=== PATIENT | female | born 1955 | race Hispanic/Latino ===

== ENCOUNTER → 2024-04-13 | Outpatient (CLI) | payer OTHER ==
[~2024-04-13] MED LIST: AMLO-257 PO; ANAS1TAB7 PO; ASPI-1197 PO; BENA10TA77 PO; CALC-1125 PO; CHOL200013 PO; DENO60DI SQ; METO-391 PO; PRAV40TA3 PO; UBID100C10 PO
== END | disposition home or self-care (01) ==
LOC: RAH 12:41
PROVIDERS: ATTEND Internal Medicine Cardiovascular Disease
DX: Z13.6 Encounter for screening for cardiovascular disorders (principal)
CPT/HCPCS: 75571

== ENCOUNTER → 2024-04-16 | Outpatient (CLI) | payer BC, MEDICARE | END | disposition home or self-care (01) | LOC: SHCH 10:46 | PROVIDERS: ATTEND Internal Medicine Cardiovascular Disease | DX: R01.1 Cardiac murmur, unspecified (principal) | CPT/HCPCS: 93306 ==